=== PATIENT | female | born 1960 | race American Indian/Alaskan Native ===

== ENCOUNTER 2017-05-12 12:23 | Emergency (ER) | payer MEDICAID, OTHER ==
[2017-05-12 12:51] VITALS: BMI 32.3
--- NOTE | 2017-05-12 13:58 | C.PDOC ---
History Of Present Illness 56-year-old female, PMHx includes Asthma, on inhaler at home. Patient states that for the last week, she has had a cough. Her grandson recently had the flu. She denies fevers or shortness of breath, but notes a non-productive cough, She comes in today because she has a pain along the sternal border, which worsens with deep breaths, causing it to radiate to the shoulder and upper back. No other complaints at this time. Time Seen by Provider: 05/12/17 13:29 Chief Complaint (Nursing): Chest Pain History Per: Patient History/Exam Limitations: no limitations Onset/Duration Of Symptoms: Days Current Symptoms Are (Timing): Still Present Past Medical History Reviewed: Historical Data, Nursing Documentation, Vital Signs Vital Signs: Last Vital Signs Temp 98.2 F 05/12/17 12:51 Pulse 69 05/12/17 12:51 Resp 20 05/12/17 12:51 BP 116/75 05/12/17 12:51 Pulse Ox 98 05/12/17 14:01 - Medical History PMH: Arthritis, Asthma, Bronchitis, HTN, Rheumatoid Arthritis Denies: Chronic Kidney Disease Family History: States: No Known Family Hx - Social History Hx Tobacco Use: No Hx Alcohol Use: No Hx Substance Use: No - Immunization History Hx Tetanus Toxoid Vaccination: No Hx Influenza Vaccination: No Hx Pneumococcal Vaccination: No Review Of Systems Constitutional: Negative for: Fever, Chills, Weakness, Malaise Cardiovascular: Positive for: Chest Pain Respiratory: Positive for: Cough. Negative for: Shortness of Breath, Sputum, Wheezing Gastrointestinal: Negative for: Nausea, Vomiting Musculoskeletal: Positive for: Shoulder Pain, Back Pain Skin: Negative for: Rash Neurological: Negative for: Weakness, Numbness, Headache, Dizziness Physical Exam - Physical Exam Appears: Well, Non-toxic, No Acute Distress Skin: Normal Color, Warm, Dry, No Diaphoretic, No Rash Head: Normacephalic Nose: Normal, No Flaring, No Discharge Lips: Normal Appearing Neck: Normal ROM Chest: Symmetrical, Tenderness (Localized right sternal border) Cardiovascular: Rhythm Regular, No Murmur Respiratory: Normal Breath Sounds, No Accessory Muscle Use, No Rales, No Rhonchi , No Wheezing Extremity: Normal ROM Neurological/Psych: Oriented x3, Normal Speech ED Course And Treatment ECG: Interpreted By Me, Viewed By Me ECG Rhythm: Sinus Rhythm ECG Interpretation: No Acute Changes Rate From EC O2 Sat by Pulse Oximetry: 98 - Radiology CXR: Interpreted by Me, Viewed By Me CXR Interpretation: Yes: Infiltrates (? retrocardiac infiltrate). No: Cardiomegaly, Pnemothorax Progress Note: CXR ordered and reviewed Reevaluation Time: 14:54 Reassessment Condition: Unchanged Disposition Counseled Patient/Family Regarding: Studies Performed, Diagnosis, Need For Followup, Rx Given - Disposition Referrals: [facility] [Outside] Disposition: HOME/ ROUTINE Disposition Time: 14:57 Condition: STABLE Prescriptions: Azithromycin [Zithromax] 250 mg PO DAILY #6 tab Instructions: Community-Acquired Pneumonia, Adult (DC), Costochondritis, Asthma , Adult (DC) Forms: [employer] (Guinean) - Clinical Impression Clinical Impression: Pneumonia, Asthma, Costochondritis - Scribe Statement The provider has reviewed the documentation as recorded by the Scribe (Marco Antonio Marcus) All medical record entries made by the Scribe were at my direction and personally dictated by me. I have reviewed the chart and agree that the record accurately reflects my personal performance of the history, physical exam, medical decision making, and the department course for this patient. I have also personally directed, reviewed, and agree with the discharge instructions and disposition.
--- NOTE | 2017-05-12 14:52 | RAD ---
HISTORY: SOB COMPARISON: Chest x-ray performed 03/23/14 TECHNIQUE: Chest PA and lateral FINDINGS: Examination limited by habitus. LUNGS: Mild retrocardiac opacity may reflect atelectasis or infiltrate. Please note that chest x-ray has limited sensitivity for the detection of pulmonary masses. PLEURA: No significant pleural effusion identified. No definite pneumothorax . CARDIOVASCULAR: Heart size appears within normal limits. OSSEOUS STRUCTURES: No acute osseous abnormality identified. VISUALIZED UPPER ABDOMEN: Unremarkable. OTHER FINDINGS: None. IMPRESSION: Mild retrocardiac opacity may reflect atelectasis or infiltrate. Correlate clinically.
[2017-05-12 15:22] VITALS: BP 128/82; PULSE 61; RESP 18; TEMP 97.4; O2SAT 100
--- NOTE | 2017-05-14 12:41 | CARD ---
APPROVED REPORT EKG Measurement Heart [id number] <Conclusion> Normal sinus rhythm Normal ECG
== END 2017-05-12 15:22 | disposition home or self-care (01) ==
LOC: C.ER 12:23
DX: J18.9 Pneumonia, unspecified organism (principal); J45.909 Unspecified asthma, uncomplicated; M94.0 Chondrocostal junction syndrome [Tietze]

== ENCOUNTER 2018-02-11 10:59 | Emergency (ER) | payer OTHER ==
[2018-02-11 11:08] VITALS: BMI 32.9
[2018-02-11 11:09] VITALS: BP 148/82; PULSE 88; RESP 20; TEMP 97.4; O2SAT 100
--- NOTE | 2018-02-11 11:36 | C.PDOC ---
History Of Present Illness 57 yo female with h/o RA c/o b/l knee pain since last night. Pt notes she didnt have any pain yesterday on gi while she was "entertain all day", it started later that evening. She has a h/o arthroscopic surgery to the left knee. Denies trauma, change in sensation, thigh or calf pain/swelling, change in skin, change in sensation, or back pain. Did not take anything for the pain. Time Seen by Provider: 02/11/18 11:13 Chief Complaint (Nursing): Lower Extremity Problem/Injury History Per: Patient History/Exam Limitations: no limitations Onset/Duration Of Symptoms: Hrs Current Symptoms Are (Timing): Still Present Past Medical History Vital Signs: Last Vital Signs Temp 97.4 F L 02/11/18 11:08 Pulse 88 02/11/18 11:08 Resp 20 02/11/18 11:08 BP 148/82 02/11/18 11:08 Pulse Ox 100 02/11/18 11:08 - Medical History PMH: Arthritis, Asthma, Bronchitis, HTN, Rheumatoid Arthritis Denies: Chronic Kidney Disease Family History: States: Unknown Family Hx - Social History Hx Tobacco Use: No Hx Alcohol Use: No Hx Substance Use: No - Immunization History Hx Tetanus Toxoid Vaccination: No Hx Influenza Vaccination: No Hx Pneumococcal Vaccination: No Review Of Systems Except As Marked, All Systems Reviewed And Found Negative. Musculoskeletal: Positive for: Other (b/l knee pain) Physical Exam - Physical Exam Appears: Well, Non-toxic, No Acute Distress Skin: Normal Color, Warm, Dry Head: Atraumatic, Normacephalic Eye(s): bilateral: Normal Inspection, EOMI Nose: Normal Oral Mucosa: Moist Throat: Normal Neck: Normal, Supple Chest: Symmetrical Respiratory: No Accessory Muscle Use Back: Normal Inspection Extremity: No Normal ROM (decreased ROM to the left knee secodnary to pain), Tenderness (diffuse tenderness to b/l knee), No Pedal Edema, No Calf Tenderness, Capillary Refill (<2 sec), Swelling (mild swelling to the left knee) Extremity: Bilateral: Normal Color And Temperature Pulses: Left Dorsalis Pedis: Normal, Right Dorsalis Pedis: Normal Neurological/Psych: Oriented x3, Normal Speech, Normal Motor, Normal Sensation ED Course And Treatment O2 Sat by Pulse Oximetry: 100 Progress Note: Pt was offered pain medication and XR , she declined. Knee brace applied by crime scene technician to left knee. Instructed RICE and follow up with RA/ortho in 1-2 days. Disposition - Disposition Referrals: Keely Machuca MD [Staff Provider] - Disposition: HOME/ ROUTINE Disposition Time: 11:34 Condition: STABLE Additional Instructions: Rest, ice and elevate the area. Follow up with the bone doctor and metal and plastic heater in 1-2 days. Prescriptions: Naproxen [Naprosyn] 1 tab PO BID PRN #20 tab PRN Reason: Pain Instructions: Knee Pain (DC) Forms: [employer] (Thai) - Clinical Impression Clinical Impression: Bilateral knee pain
== END 2018-02-11 11:59 | disposition home or self-care (01) ==
LOC: C.ER 10:59
DX: M25.561 Pain in right knee (principal); M25.562 Pain in left knee; I10 Essential (primary) hypertension; M06.9 Rheumatoid arthritis, unspecified